=== PATIENT | male | born 1940 | race Caucasian/White ===

== ENCOUNTER 2019-06-15 15:59 | Emergency (ER) | payer MEDICARE, OTHER ==
--- NOTE | 2019-06-15 16:28 | EDM.PDOC ---
ED HPI GENERAL MEDICAL PROBLEM - General Chief Complaint: Upper Extremity Injury/Pain Stated Complaint: INFECTION ON ELBOW Time Seen by Provider: 06/15/19 16:28 Source of Information: Reports: Patient History Limitations: Reports: No Limitations - History of Present Illness INITIAL COMMENTS - FREE TEXT/NARRATIVE: HISTORY AND PHYSICAL: History of present illness: Patient is a 79-year-old male presents to the ED with complaint of possible elbow infection. Patient states he started having swelling to the posterior right elbow about 6 weeks ago. He states 5 days ago he took a needle and drained it. He reports getting thin dark fluid with some blood out. Denies any purulent drainage. He states he has not had any pain whatsoever in the joint and no limited range of motion. He denies fevers or chills. Review of systems: As per history of present illness and below otherwise all systems reviewed and negative. Past medical history: As per history of present illness and as reviewed below otherwise noncontributory. Surgical history: As per history of present illness and as reviewed below otherwise noncontributory. Social history: No reported history of drug or alcohol abuse. Family history: As per history of present illness and as reviewed below otherwise noncontributory. Physical exam: General: Patient sitting comfortably in no acute distress and nontoxic appearing HEENT: Atraumatic, normocephalic, pupils reactive, negative for conjunctival pallor or scleral icterus, mucous membranes moist, throat clear, neck supple, nontender, trachea midline. No meningeal signs. Lungs: Clear to auscultation, breath sounds equal bilaterally, chest nontender. Heart: S1S2, regular, negative for clicks, rubs, or overt murmur. Abdomen: Soft, nondistended, nontender. Negative for masses or hepatosplenomegaly. Negative for costovertebral tenderness. No rigidity, rebound , guarding. Pelvis: Stable nontender. Genitourinary: Deferred. Rectal: Deferred. Extremities: The posterior right elbow is swollen at the olecranon bursa. There is no warmth, minimal erythema. Patient has a small puncture where needle was placed, there is no significant surrounding erythema and no purulent drainage. No pain to palpation, full ROM without pain or difficulty. negative for cords or calf pain. Neurovascular unremarkable. Neuro: Awake, alert, oriented. Cranial nerves II through XII unremarkable. Cerebellum unremarkable. Motor and sensory unremarkable throughout. Exam nonfocal. Notes: I have very low suspicion for septic bursitis as patient has no pain and there is minimal erythema and warmth but will cover for infection with keflex. Diagnostics: x-ray right elbow Therapeutics: none Prescriptions: Keflex Impression: Olecranon bursitis Plan: Take antibiotic as instructed Follow up with primary care provider or orthopedics Return to ED as needed as discussed Definitive disposition and diagnosis as appropriate pending reevaluation and review of above. - Related Data Allergies Allergy/AdvReac Type Severity Reaction Status Date / Time No Known Allergies Allergy Verified 06/15/19 16:11 Home Meds: Home Meds Aspirin [Halfprin] 81 mg PO DAILY 06/15/19 [History] Glycopyrrolate/Formoterol Fum [Bevespi Aerosphere Inhaler] 2 puff INH BID [History] Sildenafil [Viagra] 50 ng PO ONETIME PRN 06/15/19 [History] Varenicline Tartrate [Chantix] 1 mg PO BID 06/15/19 [History] cephALEXin [Keflex] 500 mg PO BID 7 Days #14 cap 06/15/19 [Rx] hydroCHLOROthiazide [Hydrochlorothiazide] 25 mg PO DAILY 06/15/19 [History] lisinopriL [Lisinopril] 40 mg PO DAILY 06/15/19 [History] Past Medical History Cardiovascular History: Reports: High Cholesterol, Hypertension Respiratory History: Reports: COPD Social & Family History - Tobacco Use Smoking Status *Q: Former Smoker Used Tobacco, but Quit: No - Caffeine Use Caffeine Use: Reports: Coffee - Recreational Drug Use Recreational Drug Use: No Review of Systems - Review of Systems Review Of Systems: Comprehensive ROS is negative, except as noted in HPI. ED EXAM, GENERAL - Physical Exam Exam: See Below (see dictation) Course - Vital Signs Last Recorded V/S: Last Vital Signs Temp 95.3 F L 06/15/19 16:11 Pulse 101 H 06/15/19 16:11 Resp 18 06/15/19 16:11 BP 129/73 06/15/19 16:11 Pulse Ox 97 06/15/19 16:11 Departure - Departure Time of Disposition: 17:44 Disposition: Home, Self-Care 01 Condition: Good Clinical Impression: Olecranon bursitis Qualifiers: Laterality: right Qualified Code(s): M70.21 - Olecranon bursitis, right elbow - Discharge Information Prescriptions: cephALEXin [Keflex] 500 mg PO BID 7 Days #14 cap Referrals: Renato Arce MD [Primary Care Provider] - Forms: ED Department Discharge Additional Instructions: The following information is given to patients seen in the emergency department who are being discharged to home. This information is to outline your options for follow-up care. We provide all patients seen in our emergency department with a follow-up referral. The need for follow-up, as well as the timing and circumstances, are variable depending upon the specifics of your emergency department visit. If you don't have a primary care physician on staff, we will provide you with a referral. We always advise you to contact your personal physician following an emergency department visit to inform them of the circumstance of the visit and for follow-up with them and/or the need for any referrals to a consulting specialist. The emergency department will also refer you to a specialist when appropriate. This referral assures that you have the opportunity for follow-up care with a specialist. All of these measure are taken in an effort to provide you with optimal care, which includes your follow-up. Under all circumstances we always encourage you to contact your private physician who remains a resource for coordinating your care. When calling for follow-up care, please make the office aware that this follow-up is from your recent emergency room visit. If for any reason you are refused follow-up, please contact the [facility] Emergency Department at and asked to speak to the emergency department charge nurse. [facility] [address] [place] [id number] [facility] - [facility] Professional Building [address] [place] [address], [address] [place] [address] Take antibiotic as instructed Follow up with primary care provider or orthopedics Return to ED as needed as discussed Sepsis Event Note - Evaluation Sepsis Screening Result: No Definite Risk - Focused Exam Vital Signs: Vital Signs Temp Pulse Resp BP Pulse Ox 06/15/19 16:11 95.3 F L 101 H 18 129/73 97 Date Exam was Performed: 06/15/19 Time Exam was Performed: 17:42
--- NOTE | 2019-06-15 17:39 | CR ---
Indication: Infection Technique: Right elbow 2 views Comparison: None Findings: Bones: Alignment is normal. No fracture or suspicious bone lesion. No sign of osteomyelitis. Joint spaces: No significant degenerative changes or joint effusion. Soft tissues: Localized soft tissue swelling of the olecranon suggesting olecranon bursitis. No other soft tissue abnormality. Dictated by Cecil Lopez MD @ Jun 15 2019 5:33PM Signed by Dr. Cecil Lopez @ Jun 15 2019 5:37PM
== END 2019-06-15 17:56 | disposition home or self-care (01) ==
LOC: MW.ED 15:59
DX: M70.21 Olecranon bursitis, right elbow (principal); I10 Essential (primary) hypertension; J44.9 Chronic obstructive pulmonary disease, unspecified; Z87.891 Personal history of nicotine dependence; Z79.82 Long term (current) use of aspirin; Z79.899 Other long term (current) drug therapy
CPT/HCPCS: 73070-26-RT; 73070-RT; 99283; 99283-25

== ENCOUNTER 2022-08-07 17:58 | Observation (INO) | payer MEDICARE, OTHER ==
[2022-08-07] MEDS ORDERED: Sodium Chloride 0.9% 20 ML SDV IV PRN (19:52)
[2022-08-07] MEDS ORDERED: fentaNYL 100 MCG/2 ML SDV IVPUSH ONE ×2 (19:52→21:28)
[2022-08-07] MEDS ORDERED: Sodium Chloride 0.9% 500 ML IV STA (19:52)
[2022-08-07] MEDS ORDERED: Sodium Chloride 0.9% 2.5 ML Syringe FLUSH PRN (19:52)
[2022-08-07] MEDS ORDERED: Sodium Chloride 0.9% 10 ML Syringe FLUSH PRN (19:52)
[2022-08-07] MEDS ORDERED: Bacitracin Oint 1 GM U/D Packet TOP ONE ×2 (19:56→23:04)
[2022-08-07] MEDS ORDERED: Diphtheria,Pertussis(Acell),Tetanus Vaccine 0.5 ML Syringe IM ONE (19:56)
[2022-08-07 20:22] LABS: BASOPHILS PERCENT AUTO 0.2 % (0.0-1.5); EOSINOPHILS ABSOLUTE AUTO 0.3 K/uL (0.0-0.7); EOSINOPHILS PERCENT AUTO 2.9 % (0.0-7.0); HEMATOCRIT 46.9 % (38.0-50.0); HEMOGLOBIN 16.1 g/dL (13.0-17.0); LYMPHOCYTES ABSOLUTE AUTO 2.8 K/uL (0.6-2.4); LYMPHOCYTES PERCENT AUTO 25.9 % (16.0-40.0); MEAN CORPUSCULAR HEMOGLOBIN 31.4 pg (27.0-32.0); MEAN CORPUSCULAR HGB CONC 34.3 g/dL (31.0-37.0); MEAN CORPUSCULAR VOLUME 91.6 fL (80.0-98.0); MONOCYTES PERCENT AUTO 9.6 % (0.0-15.0); NEUTROPHILS ABSOLUTE AUTO 6.6 K/uL (1.4-5.7); NEUTROPHILS PERCENT AUTO 61.4 % (48.0-80.0); NRBC ABSOLUTE 0 K/uL; PLATELET COUNT,PLT 214 K/uL (150-400); RED BLOOD CELL COUNT 5.12 M/uL (4.50-5.90)
[2022-08-07 20:52] LABS: A/G RATIO 0.9 (0.9-1.6); ALBUMIN 3.4 g/dL (3.4-5.0); BILIRUBIN TOTAL 0.5 mg/dL (0.2-1.0); CALCIUM 8.5 mg/dL (8.5-10.1); CARBON DIOXIDE,CO2 25.1 mmol/L (21.0-32.0); CREATININE 1.5 mg/dL (0.8-1.3); EST CRCL DRUG DOSING (CG) 45.67 mL/min; POTASSIUM,K 4.5 mmol/L (3.5-5.1); PROTEIN TOTAL,TP 7.2 g/dL (6.4-8.2)
[2022-08-07] MEDS ORDERED: Iopamidol 755 MG/ML 500 ML Multipack Bottle IVPUSH ONE (21:12)
[2022-08-07] MEDS ORDERED: Lactated Ringers 1,000 ML IV ONE (21:23)
[2022-08-07] MEDS ORDERED: Naloxone 0.4 MG/ML SDV IVPUSH PRN (21:28)
[2022-08-07] MEDS ORDERED: Lidocaine 1% with EPINEPHrine 1:100,000 20 ML MDV INJECT ONE ×2 (22:15→23:04)
[2022-08-07] MEDS ORDERED: Bupivacaine 0.25% 10 ML SDV INJECT ONE (22:15)
[2022-08-07] MEDS ORDERED: Bacitracin Oint 1 GM U/D Packet ONE (22:19)
[2022-08-07] MEDS ORDERED: Lidocaine 1% with EPINEPHrine 1:100,000 50 ML MDV ONE (22:19)
[2022-08-08] MEDS ORDERED: HYDROmorphone 1 MG/ML Syringe IVPUSH PRN (00:32)
[2022-08-08] MEDS ORDERED: Lidocaine 4% 1 each Patch TOP PRN (00:36)
[2022-08-08] MEDS ORDERED: oxyCODONE 5 MG Tab PO PRN (00:37)
[2022-08-08] MEDS ORDERED: Ondansetron 4 MG/2 ML SDV IVPUSH PRN (00:47)
[2022-08-08] MEDS ORDERED: Sodium Chloride 0.9% 1,000 ML IV SCH (01:00)
[2022-08-08] MEDS: Cyclobenzaprine 10 MG Tab PO SCH ×3 (01:40→12:22)
[2022-08-08] MEDS: Ketorolac 30 MG/ML SDV IVPUSH SCH ×3 (01:41→12:23)
[2022-08-08] MEDS: Acetaminophen 1,000 MG in Premix Bag 1 BAG IV SCH ×3 (01:45→12:27)
[2022-08-08 03:55] LABS: APPEARANCE,URINE CLEAR; BILIRUBIN,URINE NEGATIVE (NEGATIVE); COLOR,URINE YELLOW; GLUCOSE,URINE NEGATIVE (NEGATIVE); KETONES,URINE NEGATIVE (NEGATIVE); LEUKOCYTE ESTERASE,URINE NEGATIVE (NEGATIVE); NITRITE,URINE NEGATIVE (NEGATIVE); OCCULT BLOOD,URINE NEGATIVE (NEGATIVE); PROTEIN,URINE NEGATIVE (NEGATIVE); UROBILINOGEN,URINE 0.2 EU/dL (<2.0)
[2022-08-08 04:13] LABS: BACTERIA,URINE FEW (NEGATIVE); EPITHELIAL CELLS,URINE OCCASIONAL (NONE-FEW); RBC,URINE 0-1 (0-2/HPF); WBC,URINE 0-2 (0-5/HPF)
[2022-08-08 06:39] LABS: CALCIUM 8.1 mg/dL (8.5-10.1); CARBON DIOXIDE,CO2 23.5 mmol/L (21.0-32.0); CREATININE 1.4 mg/dL (0.8-1.3); EST CRCL DRUG DOSING (CG) 48.93 mL/min; POTASSIUM,K 4.5 mmol/L (3.5-5.1)
[2022-08-08] MEDS ORDERED: Bacitracin Oint 1 GM U/D Packet TOP ONE (08:08)
[2022-08-08] MEDS ORDERED: Hydrochlorothiazide 25 MG Tab PO SCH (09:00)
[2022-08-08] MEDS ORDERED: Lisinopril 10 MG Tab PO SCH (09:00)
== END 2022-08-08 15:10 | disposition home or self-care (01) ==
LOC: MW.ED 17:58 → MERGE 22:19 → INTOOBSV 22:19 → MW.MS 22:19
PROVIDERS: ADMIT Surgery; ATTEND Surgery
DX: S22.42XA Multiple fractures of ribs, left side, initial encounter for closed fracture (principal); S50.812A Abrasion of left forearm, initial encounter; J43.9 Emphysema, unspecified; I71.21 Aneurysm of the ascending aorta, without rupture; N40.0 Benign prostatic hyperplasia without lower urinary tract symptoms; I10 Essential (primary) hypertension; E78.5 Hyperlipidemia, unspecified; I25.10 Atherosclerotic heart disease of native coronary artery without angina pectoris; I73.9 Peripheral vascular disease, unspecified; F17.210 Nicotine dependence, cigarettes, uncomplicated; Z79.899 Other long term (current) drug therapy; W22.8XXA Striking against or struck by other objects, initial encounter
CPT/HCPCS: 36415; 70450; 71045; 71260; 72125; 74177; 80048; 80053; 81001; 83690; 85025; 90715; 93005; A9270; J0131; J1885; J3010; J3490; J7030; J7040; J7120; Q9967; 93010; 99285